=== PATIENT | female | born 1980 | race Caucasian/White ===

== ENCOUNTER 2017-04-05 08:53 | Emergency (ER) | payer MEDICARE, MEDICAID ==
[~2017-04-05] VITALS: Ht 154.9 cm; Wt 68.0 kg
[~2017-04-05 08:53] MED LIST: AMO875 PO; AMPH30TA9 PO; ARIP2TAB9 PO; ASPI-1 PO; AUG875 PO; AZI250 PO; BUP75 PO; BUPR-127 PO; BUPR-163 PO; BUPR1PAT8 TD; CAR200 PO; CHLO25 PO; CLO5 PO; CLO75 PO; CLON-393 PO; CYA100 PO; DIA10 PO; DIA5 PO; DIAZ-305 PO; ESZO3TAB37 PO; FENT-16 TD; FIO PO; FOL1 PO; HYD2 PO; HYDR-3070 PO; HYDR-3072 PO; HYDR-3074 PO; HYDR2TAB4 PO; HYDR2TAB41 PO; KET10 PO; LEV100 PO; LEV125 PO; LEV2I IV; LEVO137T22 PO; LOR5/325 PO; LOR7.5/325 PO; LORA10CA3 PO; MELO-150 PO; MELO7.5O4 PO; MET500 PO; MOD100 PO; MODA200T39 PO; MOMR; NAPR-1043 PO; NIC10R; OLAN10TA19 PO; ONDA4TAB PO; OXCA150T45 PO; OXCA600T30 PO; OXYC20TA99 PO; PAN40 PO; PENI-22 PO; PENI-24 PO; PER PO; PRE10 PO; PRE20 PO; PREG150C34 PO; PREG75CA61 PO; PRO25 PO; PROM-110 PO; PROM12.546 PO; PYRI50 PO; RAM8 PO; SUC1 PO; SUMA25TA26 PO; SUVO20TA; TIZ4 PO; TRAZ50 PO; VAL500 PO; ZOL5 PO; ZOLM5SPR4 NS; [UNRECOGNIZED DRUG - CODE] MC
[2017-04-05] MEDS ORDERED: ZOLM5TAB FT (09:18)
[2017-04-05] MEDS ORDERED: BUTA1CAP6 PO (09:18)
[2017-04-05] MEDS ORDERED: OXYC20TA99 PO (09:18)
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
[2017-04-05 10:38] LABS: PLATELET COUNT, AUTOMATED 339 K/uL (150-450)
--- NOTE | 2017-04-05 10:57 | RADIOLOGY IMAGING REPORT ---
FACILITY: [facility] - [place], [place] PATIENT NAME: Delia Nichols : 1980 MR: [id number] V: [id number] EXAM DATE: ORDERING PHYSICIAN: BELKIS VEE TECHNOLOGIST: Location: [facility] - [place], [place] Patient: Delia Nichols : 1980 Visit/Account:[id number] Date of Sevice: 04/05/2017 Abdomen radiograph series INDICATION: Pain COMPARISON: None available FINDINGS: Upright chest, two upright abdomen views and a supine abdomen view obtained. The cardiac silhouettes is normal in size. No pneumothorax. Clear lungs. Normal thoracic osseous s tructures. No free air. No organomegaly, abnormal calcifications or dilated bowel loops. Moderate volume colonic stool. Slight convexity right lumbar scoliosis. IMPRESSION: 1. No acute finding. 2. Moderate volume colonic stool. Report Dictated By: Rei Banks MD at 04/05/2017 10:50 AM Report E-Signed By: Rei Banks MD at 04/05/2017 10:52 AM WSN:[id number]
[2017-04-05 12:35] VITALS: BP 130/96
== END 2017-04-05 12:43 | disposition home or self-care (01) ==
LOC: ER 09:09
DX: K59.00 Constipation, unspecified (principal); G89.29 Other chronic pain; R10.84 Generalized abdominal pain
CPT/HCPCS: 74022; 81001; 82040; 82247; 82310; 82374; 82435; 82565; 82947; 83605; 84075; 84132; 84155; 84295; 84450; 84460; 84520; 85025; 85651; 86140; 99284

== ENCOUNTER 2017-05-16 16:29 | Emergency (ER) | payer MEDICARE, MEDICAID ==
[~2017-05-16 16:29] MED LIST changes: +BUTA1CAP6 PO; +ZOLM5TAB FT
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
[2017-05-16] MEDS ORDERED: methylPREDNIS SUCC 125 MG/2ML IM ONE (17:05)
[2017-05-16] MEDS ORDERED: diphenhydrAMINE 25 MG CAP PO ONE (17:05)
[2017-05-16] MEDS ORDERED: LOR5/325 PO (17:08)
[2017-05-16] MEDS ORDERED: PRED20TA6 PO (17:53)
[2017-05-16 18:00] VITALS: BP 147/105
== END 2017-05-16 18:12 | disposition home or self-care (01) ==
LOC: ER 16:47
DX: T78.40XA Allergy, unspecified, initial encounter (principal)
CPT/HCPCS: 96372; 99282; J2930; Q0163

== ENCOUNTER 2017-05-29 13:11 | Emergency (ER) | payer MEDICARE, MEDICAID ==
[~2017-05-29 13:11] MED LIST changes: -[UNRECOGNIZED DRUG - CODE] PO
[2017-05-29] MEDS ORDERED: OXYC20TA99 PO (13:22)
[2017-05-29 14:00] VITALS: BP 122/86
--- NOTE | 2017-05-29 14:03 | ER Report ---
History and Physical Time Seen By MD: 13:30 Hx. of Stated Complaint: pt reports taking 1 drop of skullcap and feeling throat swell and under eyes, tightness in chest, pain across upper back which she gets when she has allergic reactions HPI/ROS CHIEF COMPLAINT: Sore throat HISTORY OF PRESENT ILLNESS: 37-year-old female with sore throat "for years" presents with a lump in the throat sensation by EMS shortly after taking skullcap for the 2nd time first-time produced similar sensation this time she is concerned about an allergic reaction. No rash no wheezing no wrist or distress noted per EMS who provided Benadryl at her encouragement. She has had a total of 100 mg of Benadryl prior to arrival. She reports throat is still sore and that she did complete a course of antibiotics recently and does not feel like it helped which is why she took the skullcap in the 1st place. She claims fevers up to 101. This has been going on "for a long time" she is taking nothing to control her fevers. She is unsure if they're true fevers that she is not checking her temperature most of the time. No other concerns or complaints today. She reports possible exposure to the flu "and everything else". REVIEW OF SYSTEMS: Respiratory: No cough, no dyspnea. Cardiovascular: No chest pain, no palpitations. Gastrointestinal: No vomiting, no abdominal pain. Musculoskeletal: No back pain. Allergies: Coded Allergies: Penicillins (Verified Allergy, Mild, throat swelling, 05/29/17) prochlorperazine (Verified Allergy, Mild, MAKES HER FEEL UNEASY, 04/05/17) adhesive tape (Verified Adverse Reaction, Mild, 04/05/17) Uncoded Allergies: ORANGES (Allergy, Intermediate, SORES IN MOUTH, 10/18/11) SEASONAL ALLERGIES (Allergy, Mild, 10/19/07) skullcap (Allergy, Mild, 05/29/17) Home Meds Reported Medications Oxycodone Hcl (OXYCONTIN) 20 Mg Tab.er.12h, 40 MG PO BID, TAB 05/29/17 Zolmitriptan (ZOMIG) 5 Mg Tab, 5 MG FT, TAB 04/05/17 Butalb/Acetaminophen/Caffeine (FIORICET 50-300-40) 1 Each Capsule, 1-2 EACH PO Q4H, CAPSULE 04/05/17 Suvorexant (Belsomra) 20 Mg Tablet, DAILY 09/03/16 Promethazine Hcl (PROMETHAZINE HCL) 25 Mg Tablet, 25 MG PO PRN, TAB 05/14/16 Pantoprazole Sod (Protonix) 40 Mg Tabec, 40 MG PO HS 10/18/11 Clopidogrel Bisulfate (Plavix) 75 Mg Tab, 75 MG PO QDAY, 0 Refills 02/01/11 Discontinued Reported Medications Hydrocodone Bit/Acetaminophen (HYDROCODON-ACETAMINOPHEN 5-325) 1 Each Tablet, 2 EACH PO Q6H, TAB 05/16/17 Discontinued Scripts Prednisone (PREDNISONE) 20 Mg Tablet, 20 MG PO BID, #10 TAB Prov:SABRINA GUSMAN THREAD TRIMMER-BC 05/16/17 Hx Smoking: Yes (couple a day) Smoking Status: Current: Every Day Smoker Hx Substance Use Disorder: No Hx Alcohol Use: No Constitutional Vital Sign - Last 24 Hours 05/29/17 05/29/17 05/29/17 05/29/17 13:11 13:12 13:26 13:30 Temp 97.7 Pulse ??? 98 90 Resp 16 B/P (MAP) 137/93 (108) 137/93 127/91 (103) Pulse Ox 98 O2 Delivery Room Air 05/29/17 05/29/17 05/29/17 05/29/17 13:41 13:56 14:00 14:11 Pulse ??? 86 85 Resp 15 15 B/P (MAP) 122/86 (98) Pulse Ox 97 97 05/29/17 14:26 Pulse 88 Resp 19 Pulse Ox 99 Physical Exam General Appearance: The patient is alert, has no immediate need for airway protection and no current signs of toxicity. No distress Eyes: Pupils equal and round no injection. Bilateral tonsillar swelling, 3+ no exudate no erythema Respiratory: Chest is non tender, lungs are clear to auscultation. Cardiac: regular rate and rhythm no murmurs gallops or rubs Gastrointestinal: Abdomen is soft and non tender, no masses, bowel sounds normal. Musculoskeletal: Neck: Neck is supple and non tender. Extremities have full range of motion and are non tender. Skin: No rashes or lesions. Normal DIFFERENTIAL DIAGNOSIS: After history and physical exam differential diagnosis was considered for strep pharyngitis, viral pharyngitis no signs of systemic allergic reaction anaphylaxis or airway compromise. Medical Decision Making Data Points Laboratory Hematology Test 05/29/17 13:32 05/29/17 13:46 05/29/17 14:06 Group A Streptococcus Screen Negative (NEGATIVE) Whole Blood Glucose 77 mg/DL (75-110) Influenza Virus Type A (PCR) Negative (NEGATIVE) Influenza Virus Type B (PCR) Negative (NEGATIVE) Chemistry Test 05/29/17 13:32 05/29/17 13:46 05/29/17 14:06 Group A Streptococcus Screen Negative (NEGATIVE) Whole Blood Glucose 77 mg/DL (75-110) Influenza Virus Type A (PCR) Negative (NEGATIVE) Influenza Virus Type B (PCR) Negative (NEGATIVE) ED Course/Re-evaluation ED Course No signs of worsening while in the ED. Instructed to avoid skullcap in the future. ENT follow up for recurrent chronic tonsillitis discussed. Decision to Disposition Date: May 29, 2017 Decision to Disposition Time: 15:00 Depart Departure Latest Vital Signs Vital Signs Date Time Temp Pulse Resp B/P (MAP) Pulse Ox O2 Delivery O2 Flow Rate FiO2 05/29/17 14:26 88 19 99 05/29/17 14:00 122/86 (98) 05/29/17 13:12 97.7 Room Air Impression: Primary Impression: Tonsillitis, chronic Condition: Improved Disposition: HOME OR SELF-CARE New Scripts Phenol (CEPASTAT) 14.5 Mg Lozenge 1 IRAM PO 1-3XD Y for PAIN for 7 Days, #21 IRAM Prov: JAIMIE DURAN MD 05/29/17 Patient Instructions: Tonsillectomy (GEN), Tonsillitis (ED) JAIMIE DURAN MD May 29, 2017 14:03
[2017-05-29] MEDS ORDERED: DEXAMETHASONE 4 MG TAB PO ONE (14:05)
[2017-05-29] MEDS ORDERED: [UNRECOGNIZED DRUG - CODE] PO (15:03)
== END 2017-05-29 15:17 | disposition home or self-care (01) ==
LOC: ER 13:15
DX: J35.01 Chronic tonsillitis (principal)
CPT/HCPCS: 36416; 82948; 87081; 87502; 87880; 99283; J8540

== ENCOUNTER → 2017-05-29 | Outpatient (CLI) | payer MEDICARE, MEDICAID ==
[~2017-05-29] MED LIST changes: +PRED20TA6 PO; +[UNRECOGNIZED DRUG - CODE] PO
== END ==
LOC: AMB 12:52
PROVIDERS: ATTEND Nurse Practitioner
DX: R13.10 Dysphagia, unspecified (principal); T78.49XA Other allergy, initial encounter
CPT/HCPCS: A0425; A0427

== ENCOUNTER 2017-06-14 15:54 | Emergency (ER) | payer MEDICARE, MEDICAID ==
[~2017-06-14 15:54] MED LIST changes: +[UNRECOGNIZED DRUG - CODE] PO
--- NOTE | 2017-06-14 16:22 | ER Report ---
History and Physical Time Seen By MD: 16:16 Hx. of Stated Complaint: "SICK FOR YEARS" WITH FEVERS, NECK STIFFNESS, REACTING TO ALL MEDICATIONS, CHRONIC EAR INFECTIONS, PAIN IN BACK, THROAT, AND HEAD HPI/ROS CHIEF COMPLAINT: Multiple complaints HISTORY OF PRESENT ILLNESS: This is a 37-year-old female who presents to the emergency department for multiple complaints. Patient states that she has been sick for years and just wants things figured out here she has had multiple episodes of strep throat, ear infections, "all kinds of infections" and nobody can figure out what's going on. Patient states that she still feels like she has ear infections and she is concerned that she has encephalitis, meningitis, lymphoma and has had "multiple heart attacks in the past". Patient also states that she seen her primary care provider multiple times for these issues and they have not come up with anything. She's also been evaluated by an ENT from [place], she just finished another course of antibiotics. Upon my exam the patient is afebrile, heart rate is normal, pulse ox is normal she does not appear toxic, she does appear anxious with intermittent eye contact. REVIEW OF SYSTEMS: Constitutional: No fever, no chills. Eyes: No discharge. ENT: As above. Cardiovascular: No chest pain, no palpitations. Respiratory: No cough, no shortness of breath. Gastrointestinal: No abdominal pain, no vomiting. Genitourinary: No hematuria. Musculoskeletal: No back pain. Skin: No rashes. Neurological: No headache. Allergies: Coded Allergies: Penicillins (Verified Allergy, Mild, throat swelling, 05/29/17) ibuprofen (Verified Allergy, Mild, 06/14/17) prochlorperazine (Verified Allergy, Mild, MAKES HER FEEL UNEASY, 04/05/17) fexofenadine (Verified Allergy, Unknown, 06/14/17) adhesive tape (Verified Adverse Reaction, Mild, 04/05/17) Uncoded Allergies: ORANGES (Allergy, Intermediate, SORES IN MOUTH, 10/18/11) SEASONAL ALLERGIES (Allergy, Mild, 10/19/07) skullcap (Allergy, Mild, 05/29/17) Home Meds Reported Medications Oxycodone Hcl (OXYCONTIN) 20 Mg Tab.er.12h, 40 MG PO BID, TAB 05/29/17 Zolmitriptan (ZOMIG) 5 Mg Tab, 5 MG FT, TAB 04/05/17 Butalb/Acetaminophen/Caffeine (FIORICET 50-300-40) 1 Each Capsule, 1-2 EACH PO Q4H, CAPSULE 04/05/17 Suvorexant (Belsomra) 20 Mg Tablet, DAILY 09/03/16 Promethazine Hcl (PROMETHAZINE HCL) 25 Mg Tablet, 25 MG PO PRN, TAB 05/14/16 Pantoprazole Sod (Protonix) 40 Mg Tabec, 40 MG PO HS 10/18/11 Discontinued Reported Medications Clopidogrel Bisulfate (Plavix) 75 Mg Tab, 75 MG PO QDAY, 0 Refills 02/01/11 Discontinued Scripts Phenol (CEPASTAT) 14.5 Mg Lozenge, 1 IRAM PO 1-3XD Y for PAIN for 7 Days, #21 IRAM Prov:JAIMIE DURAN MD 05/29/17 Past Medical/Surgical History Patient has a past medical and surgical history of "CVA" seizures, migraines, "it feels in the lower legs and ankles", heart attack" but was too sick to come to the emergency department for evaluation" pulmonary embolus, hypertension, DVT , pneumonia, 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 Reviewed Nurses Notes: Yes Hx Smoking: Yes (couple a day) Smoking Status: Current: Every Day Smoker Hx Substance Use Disorder: No Hx Alcohol Use: No Constitutional Vital Sign - Last 24 Hours 06/14/17 06/14/17 06/14/17 06/14/17 15:54 16:13 16:14 16:24 Temp 97.8 Pulse ??? 95 77 Resp 16 B/P (MAP) 144/94 (111) 144/94 Pulse Ox 99 98 O2 Delivery Room Air 06/14/17 06/14/17 06/14/17 06/14/17 16:39 16:54 17:00 17:09 Pulse 83 79 82 B/P (MAP) 123/101 (108) Pulse Ox 99 97 95 06/14/17 06/14/17 06/14/17 17:24 17:31 17:39 Pulse 81 ??? B/P (MAP) 132/94 (107) Pulse Ox 97 94 Physical Exam General Appearance: The patient is alert, has no immediate need for airway protection and no signs of toxicity. Eyes: Pupils equal and round no pallor or injection. ENT, Mouth: Mucous membranes are moist. 2+ tonsillar hypertrophy, no erythema to the posterior oropharynx or the soft palate, no exudate. Respiratory: There are no retractions, lungs are clear to auscultation. Cardiovascular: Regular rate and rhythm. Gastrointestinal: Abdomen is soft and non tender, no masses, bowel sounds normal. Neurological: Alert and oriented 4. Moving all extremities. Following all commands. No focal neuro deficits. Skin: Warm and dry, no rashes. Musculoskeletal: Neck is supple non tender. Extremities are nontender, nonswollen and have full range of motion. DIFFERENTIAL DIAGNOSIS: After history and physical exam differential diagnosis was considered for recurrent strep throat, viral syndrome, malingering, obsessive-compulsive, Cesar's angina and recurrent otitis media. Medical Decision Making Data Points Result Diagram: 06/14/17 1659 Laboratory Hematology Test 06/14/17 16:59 Red Blood Count 5.01 M/uL (4.17-5.56) Mean Corpuscular Volume 85.8 fL (80.0-96.0) Mean Corpuscular Hemoglobin 30.2 pg (26.0-33.0) Mean Corpuscular Hemoglobin Concent 35.2 g/dL (32.0-36.0) Red Cell Distribution Width 12.2 % (11.5-14.5) Mean Platelet Volume 7.3 fL (7.2-11.1) Neutrophils (%) (Auto) 78.8 % (39.4-72.5) Lymphocytes (%) (Auto) 14.6 % (17.6-49.6) Monocytes (%) (Auto) 4.9 % (4.1-12.4) Eosinophils (%) (Auto) 0.3 % (0.4-6.7) Basophils (%) (Auto) 1.4 % (0.3-1.4) Nucleated RBC Relative Count (auto) 0.0 /100WBC Neutrophils # (Auto) 4.6 K/uL (2.0-7.4) Lymphocytes # (Auto) 0.9 K/uL (1.3-3.6) Monocytes # (Auto) 0.3 K/uL (0.3-1.0) Eosinophils # (Auto) 0.0 K/uL (0.0-0.5) Basophils # (Auto) 0.1 K/uL (0.0-0.1) Nucleated RBC Absolute Count (auto) 0.00 K/uL Monoscreen Negative (NEGATIVE) Chemistry Test 06/14/17 16:59 White Blood Count 5.8 k/uL (4.5-11.0) Red Blood Count 5.01 M/uL (4.17-5.56) Hemoglobin 15.1 g/dL (12.0-16.0) Hematocrit 43.0 % (34.0-47.0) Mean Corpuscular Volume 85.8 fL (80.0-96.0) Mean Corpuscular Hemoglobin 30.2 pg (26.0-33.0) Mean Corpuscular Hemoglobin Concent 35.2 g/dL (32.0-36.0) Red Cell Distribution Width 12.2 % (11.5-14.5) Platelet Count 313 K/uL (150-450) Mean Platelet Volume 7.3 fL (7.2-11.1) Neutrophils (%) (Auto) 78.8 % (39.4-72.5) Lymphocytes (%) (Auto) 14.6 % (17.6-49.6) Monocytes (%) (Auto) 4.9 % (4.1-12.4) Eosinophils (%) (Auto) 0.3 % (0.4-6.7) Basophils (%) (Auto) 1.4 % (0.3-1.4) Nucleated RBC Relative Count (auto) 0.0 /100WBC Neutrophils # (Auto) 4.6 K/uL (2.0-7.4) Lymphocytes # (Auto) 0.9 K/uL (1.3-3.6) Monocytes # (Auto) 0.3 K/uL (0.3-1.0) Eosinophils # (Auto) 0.0 K/uL (0.0-0.5) Basophils # (Auto) 0.1 K/uL (0.0-0.1) Nucleated RBC Absolute Count (auto) 0.00 K/uL Monoscreen Negative (NEGATIVE) ED Course/Re-evaluation ED Course The patient was admitted to a room. A history of disc were obtained. Differential diagnoses were considered. The patient's is very concerned that she has some underlying disease process that her primary care provider has not been able to diagnose over the last 3 years. I did explain to her that Likely That I Will Be Able to determine why she's been sick for the last 3 years we also discussed that it might be advisable for her to follow up with Dr. Archuleta the tearoom host [place] with [facility] [place] as she states she's had multiple episodes of strep throat and ear infections over the last several years and has been on a multitude of antibiotics. She was also concerned that she had meningitis, encephalitis and lymphoma. After my physical exam patient does have some enlarged tonsils however there is no erythema or exudate noted. The patient did not have a muffled voice no drooling, no difficulty breathing. I did do a CBC and a Monospot test both of which were unremarkable. I did try to reassure the patient that it's unlikely that she does not have meningitis or encephalitis at this time as she is not symptomatic , her vital signs are stable, afebrile. I did review these results with the patient. I also gave her a sheet with the local providers and encouraged her to follow up with Dr. Archuleta for a 2nd opinion from an tearoom host. Patient expressed understanding and was agreeable to this plan of care and was discharged home. Decision to Disposition Date: Jun 14, 2017 Decision to Disposition Time: 17:49 Depart Departure Latest Vital Signs Vital Signs Date Time Temp Pulse Resp B/P (MAP) Pulse Ox O2 Delivery O2 Flow Rate FiO2 06/14/17 17:39 ??? 94 06/14/17 17:31 132/94 (107) 06/14/17 16:14 97.8 16 Room Air Impression: Primary Impression: Sore throat, chronic Condition: Improved Disposition: HOME OR SELF-CARE Referrals: JUSTYN ARCHULETA JR, MD Patient Instructions: Sore Throat in Children (ED) Additional Instructions: Continue to drink plenty of fluids. Get plenty of rest, try to establish are regular bedtime routine to help with sleep. Follow up with Dr. Archuleta, ENT for further evaluation of your throat. Follow up with your PCP for any other needs. Return to the ED for any other concerns or worsening symptoms. SABRINA GUSMAN ACCESS SPECIALIST- Jun 14, 2017 16:22
[2017-06-14 17:06] LABS: PLATELET COUNT, AUTOMATED 313 K/uL (150-450)
[2017-06-14 17:31] VITALS: BP 132/94
== END 2017-06-14 18:13 | disposition home or self-care (01) ==
LOC: ER 16:13
DX: J31.2 Chronic pharyngitis (principal)
CPT/HCPCS: 36415; 85025; 86308; 99282

== ENCOUNTER → 2018-01-06 | Outpatient (CLI) | payer MEDICARE, MEDICAID | LOC: LAB 15:01 | PROVIDERS: ATTEND Otolaryngology | DX: J30.9 Allergic rhinitis, unspecified (principal) | CPT/HCPCS: 36415; 86003 ==

== ENCOUNTER → 2018-03-06 | Outpatient (CLI) | payer MEDICARE, MEDICAID ==
[~2018-03-06] MED LIST changes: +BENZ1LOZ12 PO; +CETI10CA8 PO; +DOXY-228 PO; +OXYC-373 PO; +PSEU120T9 PO; +TIZA4CAP3 PO
--- NOTE | 2018-03-07 16:24 | RADIOLOGY IMAGING REPORT ---
[place] [facility] [place] NAME: CARMELLA FLEMING : [id number] MR: [id number] V: [id number] EXAM DATE: ORDERING PHYSICIAN: PRIYA MILLER TECHNOLOGIST: Татьяна Anderson RT(R)(CT) PROCEDURE:US BILATERAL BREAST COMPARISON:Prior bilateral breast Ultrasound 04/20/11. INDICATIONS:Palpable lumps lateral portion of the Left breast & upper outer quadrant of the Right breast. FINDINGS: The entire Right breast was imaged. In the 10 o'clock position of the Right breast 6cm from the nipple there is a 6 x 2mm cyst. In the 10 o'clock position of the Right breast 4cm from the nipple there is a 7 x 3mm cyst. In the 11 o'clock position of the Right breast 6cm from the nipple is a small cluster or tiny cysts. In the 11 o'clock position of the Right breast 5cm from the nipple there is a 4mm cyst. In the 11 o'clock position of the Right breast 4cm from the nipple there is a 7.5mm cyst. In the 11 o'clock position of the Right breast 1cm from the nipple there is a 4mm cyst. In the Left breast 1 o'clock position 5cm from the nipple there is a small cluster of cysts collectable measuring 5mm. In the 1 o'clock position Left breast 1cm from the nipple there is a 1.3cm cyst. In the 10 o'clock position of the Left breast 3cm from the nipple there is a small hypoechoic nodule which was not measured may represent a small debris filled cyst. DIAGNOSTIC CATEGORY 2--BENIGN FINDING. RECOMMENDATIONS: CLINICAL EVALUATION. IMPRESSION: BIRADS 2: Benign finding. There are multiple cysts identified in both breasts as detailed above. These likely account for patient's palpable findings although continued clinical follow-up recommended. Dictated by: Shaina Cordova M.D. on 03/06/2018 at 17:18 Transcribed by: PRASAD on 03/07/2018 at 8:52 Approved by: Shaina Cordova M.D. on 03/07/2018 at 16:23 [facility]
--- NOTE | 2018-03-07 16:24 | RADIOLOGY IMAGING REPORT ---
FACILITY: [facility] [place] PATIENT NAME: CARMELLA FLEMING : [id number] MR: [id number] V: [id number] EXAM DATE: ORDERING PHYSICIAN: PRIYA MILLER TECHNOLOGIST: Shayy Farrell PROCEDURE:BILATERAL DIAGNOSTIC DIGITAL MAMMOGRAM WITH CAD ASSISTED INTERPRETATION & 3D TOMOSYNTHESIS COMPARISON:Prior mammograms 03/15/14, 04/20/11. INDICATIONS:Palpable lump upper outer quadrant of the Right breast & palpable lumps lateral aspect Left breast. FINDINGS: The breasts are extremely dense which lowers the sensitivity of mammography. The parenchymal pattern has remained stable allowing for difference in mammographic technique & patient positioning. There is no demonstration of malignant appearing mass, malignant appearing calcifications or other secondary sign of malignancy in either breast. Today's bilateral breast Ultrasound demonstrated multiple bilateral breast cysts. DIAGNOSTIC CATEGORY 2--BENIGN FINDING. RECOMMENDATIONS: CLINICAL EVALUATION. IMPRESSION: BIRADS 2: Benign finding. Today's bilateral breast Ultrasound demonstrated multiple bilateral breast cysts which likely accounts for patient's palpable findings although continued clinical follow-up recommended. Dictated by: Shaina Cordova M.D. on 03/06/2018 at 17:20 Transcribed by: PRASAD on 03/07/2018 at 8:38 Approved by: Shaina Cordova M.D. on 03/07/2018 at 16:23 [facility]
== END ==
LOC: MAMO 05:00
PROVIDERS: ATTEND Family Medicine
DX: N60.01 Solitary cyst of right breast (principal); N60.02 Solitary cyst of left breast
CPT/HCPCS: 77062; 77066

== ENCOUNTER → 2018-03-31 | Outpatient (REF) | payer MEDICARE, MEDICAID ==
[~2018-03-31] MED LIST changes: +GUAI600T57 PO; +PRE200PT PO; -ZOLM5TAB FT; +ZOLM5TAB PO
[2018-03-31 17:10] LABS: PLATELET COUNT, AUTOMATED 274 K/uL (150-450)
== END ==
LOC: ZZSENDIN 16:46
PROVIDERS: ATTEND Family Medicine
DX: Z01.812 Encounter for preprocedural laboratory examination (principal)
CPT/HCPCS: 81001; 82040; 82247; 82310; 82374; 82435; 82565; 82947; 84075; 84132; 84155; 84295; 84443; 84450; 84460; 84520; 85025

== ENCOUNTER 2018-04-03 00:57 | Day surgery (SDC) | payer MEDICARE, MEDICAID ==
[~2018-04-03] VITALS: Ht 154.9 cm; Wt 64.9 kg
[2018-04-03] MEDS ORDERED: METOCLOPRAMIDE 10 MG/2 ML SDV ONE (06:37)
[2018-04-03] MEDS ORDERED: PROPOFOL EMUL(*) 10MG/ML 20 ML 20 ML ONE (06:37)
[2018-04-03] MEDS ORDERED: LIDOCAINE MPF 1% 5 ML VIAL ONE (06:37)
[2018-04-03] MEDS ORDERED: DEXAMETHASONE SOD PHOS 10MG/ML ONE (06:37)
[2018-04-03] MEDS ORDERED: ONDANSETRON 4 MG/2 ML VIAL ONE (06:37)
[2018-04-03] MEDS ORDERED: fentaNYL CITR 100 MCG/2 ML AMP ONE ×2 (06:37→12:04)
[2018-04-03] MEDS ORDERED: CLINDAMYCIN(*) 600 MG/NS 50 ML 50 ML IVPB ONE (09:40)
[2018-04-03 09:52] VITALS: BP 105/80
[2018-04-03 09:52] LABS: PLATELET COUNT, AUTOMATED 289 K/uL (150-450)
[2018-04-03] MEDS ORDERED: FAMOTIDINE(*) 20MG/50ML PREMIX 50 ML IVPB ONE (09:58)
[2018-04-03] MEDS ORDERED: MIDAZOLAM 2 MG/2 ML VIAL IVP PRN (10:10)
[2018-04-03] MEDS ORDERED: FAMOTIDINE 20 MG TAB PO ONE (10:10)
[2018-04-03] MEDS ORDERED: LIDOCAINE/SOD BICARB 8.4% SYR ID ONE (10:10)
[2018-04-03] MEDS ORDERED: NORMOSOL R SOLN(*) 1000 ML BAG 1,000 ML IV PRN (10:10)
[2018-04-03] MEDS ORDERED: LIDO15SO2 PO (12:16)
[2018-04-03] MEDS ORDERED: AZIT-17 PO (12:18)
[2018-04-03] MEDS ORDERED: OXYC-865 PO (12:19)
--- NOTE | 2018-04-03 12:40 | OPERATIVE REPORT 1 ---
EVENT DATE: April 03, 2018 SURGEON: Kaushal Archuleta Jr., MD ANESTHESIOLOGIST: Diogo Negro MD ANESTHESIA: LMA. TRANSIT POLICE OFFICER: [*] PROCEDURE PERFORMED Tonsillectomy PREOPERATIVE DIAGNOSIS Recurrent acute tonsillitis. POSTOPERATIVE DIAGNOSIS Recurrent acute tonsillitis. INDICATIONS Please refer to the preoperative note. DESCRIPTION OF PROCEDURE The patient was positively identified in the preoperative area. She was there alone. Risks and benefits were explained including, but not limited to, bleeding, infection and those associated with anesthesia including a postoperative thrombotic event. The patient acknowledged understanding of these risks. She was then brought back to the operating room, laid supine on the operating table and anesthesia was administered. Once asleep, the patient was positioned, prepped and draped in the usual sterile fashion. A McIvor Mouth Gag was placed in the patient's oral cavity. Red rubber catheter was placed through the right nostril and utilized to suspend the soft palate. The patient was noted to have 3+ tonsils bilaterally. The right tonsil was grasped with curved Allis forceps and carefully dissected from the lateral pharyngeal wall with suction Bovie electrocautery. In a similar fashion, the contralateral tonsil was removed. Hemostasis was further obtained with suction Bovie electrocautery. The patient was then returned to anesthesia for emergence. ESTIMATED BLOOD LOSS 10 cc. COMPLICATIONS No complications. MTDD
[2018-04-03 13:05] VITALS: BP 118/81
[2018-04-03 13:21] VITALS: BP 110/81
[2018-04-03 13:25] VITALS: BP 113/84
[2018-04-04] MEDS ORDERED: ONDA4TAB9 PO (16:04)
== END 2018-04-03 13:05 | disposition home or self-care (01) ==
LOC: OR 00:57
PROVIDERS: ATTEND Otolaryngology
DX: J03.91 Acute recurrent tonsillitis, unspecified (principal)
CPT/HCPCS: 36415; 42826; 81025; 85025; 88304; A9270; J1100; J2001; J2405; J2704; J2765; J3010; J3490

== ENCOUNTER 2018-04-06 23:12 | Observation (INO) | payer MEDICARE, MEDICAID ==
[~2018-04-06 23:12] MED LIST changes: +AZIT-17 PO; +LIDO15SO2 PO; +ONDA4TAB9 PO; +OXYC-865 PO
--- NOTE | 2018-04-06 23:17 | ER Report ---
History and Physical Time Seen By MD: 23:17 HPI/ROS CHIEF COMPLAINT: Postoperative tonsillectomy bleeding HISTORY OF PRESENT ILLNESS: 38-year-old female presents ambulatory to the ER complaining of spitting up blood. She is 4 days out from a tonsillectomy. She states she has a bleeding disorder. Patient states she was washing her face when she felt a clot in her throat. She went to gargle and profuse blood came up. She's been spitting up clots in route to the hospital with her friend. REVIEW OF SYSTEMS: Respiratory: No cough, no dyspnea. Cardiovascular: No chest pain, no palpitations. Gastrointestinal: No vomiting, no abdominal pain. Musculoskeletal: No back pain. Allergies: Coded Allergies: Penicillins (Verified Allergy, Mild, throat swelling, 03/17/18) ibuprofen (Verified Allergy, Mild, 03/17/18) prochlorperazine (Verified Allergy, Mild, MAKES HER FEEL UNEASY, 03/17/18) fexofenadine (Verified Allergy, Unknown, 03/17/18) adhesive tape (Verified Adverse Reaction, Mild, 03/17/18) Uncoded Allergies: ORANGES (Allergy, Intermediate, SORES IN MOUTH, 10/18/11) SEASONAL ALLERGIES (Allergy, Mild, 10/19/07) skullcap (Allergy, Mild, 05/29/17) Home Meds Active Scripts Ondansetron 4 Mg Odt (ONDANSETRON 4 MG ODT) 4 Mg Tab.rapdis, 4 MG PO Q6H PRN for NAUSEA/VOMITING for 5 Days, #15 TAB Prov:JUSTYN ARTEAGA JR, MD 04/04/18 Benzocaine/Menthol (CEPACOL SORE THROAT LOZENGE) 1 Each Lozenge, 1 EACH PO Q2H PRN for SORE THROAT for 30 Days, #30 LOZENGE 1 Refill Prov:JUSTYN ARTEAGA JR, MD 02/28/18 Reported Medications Oxycodone Hcl/Acetaminophen (PERCOCET 5-325 MG TABLET) 1 Each Tablet, 1-2 EACH PO Q6H PRN for PAIN, #30 TAB 04/03/18 Azithromycin (Z-PACK) 250 Mg Tablet, 0 PO QDAY, #6 DOSE-PACK 04/03/18 Lidocaine HCl VISCOUS 2% (Lidocaine Viscous) 2 % Solution, 15 ML PO Q2H PRN for PAIN, #500 ML SWISH AND SPIT EVERY 2 HOURS NEED FOR PAIN RELIEF. DO NOT SWALLOW. 04/03/18 Pregabalin (LYRICA) 200 Mg Cap, 200 MG PO TID, CAP 03/17/18 Guaifenesin (MUCINEX) 600 Mg Tablet.er, 600 MG PO 03/17/18 Promethazine Hcl (PROMETHAZINE HCL) 25 Mg Tablet, 25 MG PO Q8H, TAB 03/17/18 Cetirizine Hcl (ZYRTEC) 10 Mg Capsule, 20 MG PO QDAY, CAPSULE 01/11/18 Tizanidine Hcl (TIZANIDINE HCL) 4 Mg Capsule, 4 MG PO TID, CAPSULE 01/11/18 Zolmitriptan (ZOMIG) 5 Mg Tab, 5 MG PO, TAB 04/05/17 Butalb/Acetaminophen/Caffeine (FIORICET 50-300-40) 1 Each Capsule, 1-2 EACH PO Q4H, CAPSULE 04/05/17 Suvorexant (Belsomra) 20 Mg Tablet, DAILY 09/03/16 Discontinued Reported Medications Oxycodone Hcl/Acetaminophen (OXYCODONE-ACETAMINOPHEN 5-325) 1 Each Tablet, 1 EACH PO, TAB 01/11/18 Oxycodone Hcl (OXYCONTIN) 20 Mg Tab.er.12h, 40 MG PO BID, TAB 05/29/17 Past Medical/Surgical History DIAGNOSES 1. Hypercoagulable state. 2. 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 3. Positive antiphospholipid antibody. 4. History of hypertriglyceridemia. 5. Worsening dementia symptoms. 6. Depression, on treatment. 7. Heart attack at age [age]. Two strokes at age [age]. Pulmonary embolism at age of [age]. 8. Hypertriglyceridemia. PAST SURGICAL HISTORY 1. Removal of scar tissue after . 2. Right thumb radial surgery. 3. Tonsillectomy 4 days ago Reviewed Nurses Notes: Yes Old Medical Records Reviewed: Yes Hx Smoking: Yes (couple a day) Smoking Status: Current: Some Days Smoker Hx Substance Use Disorder: No Hx Alcohol Use: No Constitutional Vital Sign - Last 24 Hours 04/06/18 04/06/18 04/06/18 04/06/18 23:17 23:18 23:20 23:22 Pulse 94 93 103 105 Resp 17 B/P (MAP) 126/95 Pulse Ox 98 91 96 86 O2 Delivery Room Air 04/06/18 04/06/18 04/06/18 04/06/18 23:24 23:26 23:28 23:30 Pulse 101 96 98 98 B/P (MAP) 116/101 (106) Pulse Ox 97 97 94 96 04/06/18 04/06/18 04/06/18 04/06/18 23:32 23:34 23:36 23:38 Pulse 100 97 103 104 Pulse Ox 97 97 96 100 04/06/18 04/06/18 04/06/18 04/06/18 23:40 23:42 23:44 23:48 Pulse 98 101 ??? 109 Pulse Ox 95 93 92 94 04/06/18 04/06/18 04/06/18 04/06/18 23:50 23:52 23:54 23:56 Pulse 100 103 104 101 Pulse Ox 95 96 96 96 04/06/18 04/07/18 04/07/18 04/07/18 23:58 00:00 00:04 00:06 Pulse 111 111 109 116 B/P (MAP) 132/90 (104) Pulse Ox 95 96 97 98 04/07/18 04/07/18 04/07/18 04/07/18 00:08 00:10 00:10 00:12 Pulse 113 ? Pulse Ox 92 97 92 O2 Flow Rate 4.0 04/07/18 04/07/18 04/07/18 04/07/18 00:14 00:20 00:22 00:24 Pulse 136 89 69 Resp 32 B/P (MAP) 53/38 (43) 50/38 (42) Pulse Ox 97 100 04/07/18 04/07/18 04/07/18 04/07/18 00:25 00:26 00:28 00:29 Pulse 61 ??? B/P (MAP) 82/29 (46) 101/64 (76) Pulse Ox 97 87 04/07/18 04/07/18 04/07/18 04/07/18 00:30 00:32 00:38 00:40 Pulse 86 79 81 79 Resp 8 10 Pulse Ox 85 100 99 04/07/18 04/07/18 04/07/18 04/07/18 00:43 00:44 00:45 00:46 Pulse 80 80 Resp 10 B/P (MAP) 108/76 (87) 109/69 (82) Pulse Ox 97 04/07/18 04/07/18 04/07/18 04/07/18 00:48 00:50 00:52 00:54 Pulse 77 82 78 ??? Resp 8 13 11 8 B/P (MAP) 106/79 (88) Pulse Ox 97 96 97 96 04/07/18 04/07/18 00:55 00:56 Pulse 82 Resp 13 B/P (MAP) 109/74 (86) Pulse Ox 94 Physical Exam General Appearance: The patient is alert, has no immediate need for airway pr otection and no current signs of toxicity. Slightly pale appearing, skin warm and dry, stable vital signs, pulse ox normal HEENT: Pupils equal and round no injection. TMs normal, ale bleeding from left tonsillar fossa Respiratory: Chest is non tender, lungs are clear to auscultation. Cardiac: regular rate and rhythm Gastrointestinal: Abdomen is soft and non tender, no masses, bowel sounds norm al. Musculoskeletal: Neck: Neck is supple and non tender. Extremities have full range of motion and are non tender. Skin: No rashes or lesions. DIFFERENTIAL DIAGNOSIS: After history and physical exam differential diagnosis was considered for postoperative bleeding, coagulopathy, Medical Decision Making Data Points Result Diagram: 04/07/18 0042 Laboratory Hematology Test 04/07/18 00:42 Red Blood Count 2.40 M/uL (4.17-5.56) Mean Corpuscular Volume 88.5 fL (80.0-96.0) Mean Corpuscular Hemoglobin 29.7 pg (26.0-33.0) Mean Corpuscular Hemoglobin Concent 33.5 g/dL (32.0-36.0) Red Cell Distribution Width 12.6 % (11.5-14.5) Mean Platelet Volume 8.4 fL (7.2-11.1) Neutrophils (%) (Auto) 73.1 % (39.4-72.5) Lymphocytes (%) (Auto) 18.4 % (17.6-49.6) Monocytes (%) (Auto) 7.8 % (4.1-12.4) Eosinophils (%) (Auto) 0.4 % (0.4-6.7) Basophils (%) (Auto) 0.3 % (0.3-1.4) Nucleated RBC Relative Count (auto) 0.1 /100WBC Neutrophils # (Auto) 3.8 K/uL (2.0-7.4) Lymphocytes # (Auto) 1.0 K/uL (1.3-3.6) Monocytes # (Auto) 0.4 K/uL (0.3-1.0) Eosinophils # (Auto) 0.0 K/uL (0.0-0.5) Basophils # (Auto) 0.0 K/uL (0.0-0.1) Nucleated RBC Absolute Count (auto) 0.00 K/uL Chemistry Test 04/07/18 00:42 White Blood Count 5.2 k/uL (4.5-11.0) Red Blood Count 2.40 M/uL (4.17-5.56) Hemoglobin 7.2 g/dL (12.0-16.0) Hematocrit 21.3 % (34.0-47.0) Mean Corpuscular Volume 88.5 fL (80.0-96.0) Mean Corpuscular Hemoglobin 29.7 pg (26.0-33.0) Mean Corpuscular Hemoglobin Concent 33.5 g/dL (32.0-36.0) Red Cell Distribution Width 12.6 % (11.5-14.5) Platelet Count 132 K/uL (150-450) Mean Platelet Volume 8.4 fL (7.2-11.1) Neutrophils (%) (Auto) 73.1 % (39.4-72.5) Lymphocytes (%) (Auto) 18.4 % (17.6-49.6) Monocytes (%) (Auto) 7.8 % (4.1-12.4) Eosinophils (%) (Auto) 0.4 % (0.4-6.7) Basophils (%) (Auto) 0.3 % (0.3-1.4) Nucleated RBC Relative Count (auto) 0.1 /100WBC Neutrophils # (Auto) 3.8 K/uL (2.0-7.4) Lymphocytes # (Auto) 1.0 K/uL (1.3-3.6) Monocytes # (Auto) 0.4 K/uL (0.3-1.0) Eosinophils # (Auto) 0.0 K/uL (0.0-0.5) Basophils # (Auto) 0.0 K/uL (0.0-0.1) Nucleated RBC Absolute Count (auto) 0.00 K/uL ED Course/Re-evaluation Clinical Indication for ER IV: Hydration, IV Access ED Course Patient was admitted to an examination room. H&P was done. The differential diagnoses was considered. A peripheral IV was established. 1 L normal saline bolus was ordered. A CBC was ordered. Patient was treated with cold popsicles to the back of her throat. After a brief period. She continued to have profuse bleeding. A call was placed to Dr. Justyn Arteaga ENT on-call. Patient's bleeding worsened approximately 25 minutes into her emergency department stay. Dr. Arteaga recommended 1 g of TXA IV infused over 10 minutes. A 2nd peripheral IV was established. Type and cross for 4 units of blood was ordered. She began to have continued profuse bleeding. Her blood pressure dropped to 53/30. She was placed on supplemental O2 and a 3rd IV was established. 2 L of normal saline was administered. Repeat H&H was drawn and returned at 7 and 21. She was crossmatched for 4 units. The OR crew was called in as well as Dr. Arteaga to take the patient to the OR for hemostasis. Decision to Disposition Date: Apr 07, 2018 Decision to Disposition Time: 00:48 Critical Care Time I spent a total of 60 of critical care time in obtaining history, performing a physical exam, bedside monitoring of interventions, collecting and interpreting tests and discussion with consultants but not including time spent performing procedures. Depart Departure Latest Vital Signs Vital Signs Date Time Temp Pulse Resp B/P (MAP) Pulse Ox O2 Delivery O2 Flow Rate FiO2 04/07/18 00:56 82 13 94 04/07/18 00:55 109/74 (86) 04/07/18 00:10 4.0 04/06/18 23:17 Room Air Impression: Primary Impression: Postoperative bleeding from mouth Additional Impressions: Status post tonsillectomy Anemia Hypercoagulable state Condition: Improved Disposition: ADMIT FROM ER TO OR Problem Qualifiers Additional Impressions: Anemia Anemia type: unspecified type Qualified Codes: D64.9 - Anemia, unspecified EDILBERTO ESTES DO Apr 06, 2018 23:17
[2018-04-06] MEDS ORDERED: ONDANSETRON 4 MG/2 ML VIAL IVP ONE (23:20)
[2018-04-07] VITALS (16 sets, daily range): BP systolic 98–113; BP diastolic 67–82
[2018-04-07] MEDS ORDERED: TRANEXAMIC AC 1000 MG/10ML SDV ONE
[2018-04-07] MEDS ORDERED: NS(*) 0.9% 250 ML BAG 250 ML ONE (00:05)
[2018-04-07 00:19] LABS: PLATELET COUNT, AUTOMATED 255 K/uL (150-450)
[2018-04-07] MEDS ORDERED: PROMETHAZINE 25 MG/ML 1 ML AMP ONE (00:20)
[2018-04-07] MEDS ORDERED: FAMOTIDINE(*) 20MG/50ML PREMIX 50 ML IVPB ONE (01:04)
[2018-04-07] MEDS: NORMOSOL R SOLN(*) 1000 ML BAG 1,000 ML IV PRN ×2 (01:10→02:50)
[2018-04-07 01:25] LABS: PLATELET COUNT, AUTOMATED 132 K/uL (150-450)
[2018-04-07] MEDS ORDERED: LR(*) 1000 ML BAG 1,000 ML IV PRN (01:28)
[2018-04-07] MEDS ORDERED: ONDANSETRON 4 MG ODT TABDP SL PRN (01:30)
--- NOTE | 2018-04-07 01:31 | Post Operative Note ---
Operative Note - ENT Operative Day Date: Apr 07, 2018 Physicians Surgeon: Geremias Anesthesia: GETA Diagnosis Pre-Op Diagnosis: post tonsillectomy hemorrhage Post-Op Diagnosis: same Procedure Procedure(s): cauterization post tonsillectomy hemorrhage Complications: none Fluids Estimated Blood Loss: 10 ml JUSTYN ARTEAGA JR, MD Apr 07, 2018 01:31
[2018-04-07] MEDS ORDERED: SUCCINYLCHOL CHL 100MG/5ML SYR IVP ONE (01:35)
[2018-04-07] MEDS ORDERED: PROPOFOL EMUL 10MG/ML 20 ML VL ONE (01:35)
[2018-04-07] MEDS ORDERED: DEXAMETHASONE SOD PHOS 10MG/ML ONE (01:35)
[2018-04-07] MEDS ORDERED: ROCURONIUM BROM 10 MG/ML 10 ML ONE (01:35)
[2018-04-07] MEDS ORDERED: NS(*) 0.9% 1000 ML BAG 1,000 ML IV ONE ×3 (01:45)
[2018-04-07] MEDS ORDERED: fentaNYL CITR 100 MCG/2 ML AMP ONE ×2 (02:09→02:36)
--- NOTE | 2018-04-07 02:17 | CONSULTATION ---
EVENT DATE: April 07, 2018 REQUESTING PHYSICIAN Kraig Aguilar DO, in the emergency department. CONSULTING PHYSICIAN Kaushal Archuleta Jr., MD REASON FOR CONSULTATION Post-tonsillectomy hemorrhage. HISTORY OF PRESENT ILLNESS This is a 38-year-old woman who underwent tonsillectomy by me four days ago. The patient noticed acute bleeding from the mouth earlier this evening. She presented to the emergency department. Per report, she coughed up approximately 1400 mL of bright red blood. She was given 1 g of TXA with some improvement of her bleeding transiently. PAST MEDICAL HISTORY Significant for seizure, stroke, hypertension, history of myocardial infarction, GERD, hypothyroidism. FAMILY HISTORY Mother with breast cancer and hypothyroidism. SOCIAL HISTORY The patient smokes tobacco. She denies alcohol use and recreational drug use. REVIEW OF SYSTEMS As above. PHYSICAL EXAMINATION GENERAL: Well nourished, well developed, in no apparent distress. VITAL SIGNS: Heart rate 100, oxygen saturation 91%. Blood pressure was 100/70. HEENT: Dried blood over the patient's face and oral cavity. No active bleeding presently. ASSESSMENT Post-tonsillectomy hemorrhage. PLAN Given the severity of the patient's post-tonsillectomy hemorrhage, I elected to take her to the operating room for identification of the source and cauterization. Risks of recurrent bleeding and those associated with anesthesia are discussed with the patient. The patient is to receive blood transfusion, which was already ordered by the emergency department and consented to by the patient. ELYSE
--- NOTE | 2018-04-07 02:31 | OPERATIVE REPORT 1 ---
EVENT DATE: April 07, 2018 SURGEON: Kaushal Archuleta Jr., MD ANESTHESIOLOGIST: Sudeep Watson MD ANESTHESIA: General endotracheal. PREOPERATIVE DIAGNOSIS Left post-tonsillectomy hemorrhage. POSTOPERATIVE DIAGNOSIS Left post-tonsillectomy hemorrhage. PROCEDURE PERFORMED Cauterization of left post-tonsillectomy hemorrhage. INDICATIONS Please refer to the preoperative note. DESCRIPTION OF PROCEDURE The patient was positively identified in the preoperative area. She was there alone. Risks again were explained, including but not limited to recurrent bleeding and those associated with anesthesia. She acknowledged understanding of those risks. She was then brought back to the operative suite and placed upon the operating table, and anesthesia was administered. Once asleep, the patient was positioned and prepped and draped in the usual sterile fashion. A McIvor mouth gag was placed in the patient's oral cavity. A red rubber catheter was placed through the right nostril and utilized to suspend the soft palate. The patient had gross clot in her left tonsillar fossa. This was removed with forceps. The oral cavity was then copiously irrigated with normal saline solution. The patient was noted to have some active bleeding from the left superior pole of the tonsillar fossa. This was cauterized with suction Bovie electrocautery. Patient was then turned to Anesthesia for emergence. Estimated blood loss during the case was less than 10 mL. No complications. MTDD
[2018-04-07] MEDS ORDERED: ONDANSETRON 4 MG/2 ML VIAL ONE (02:36)
[2018-04-07] MEDS: MORPHINE 2 MG/ML SYR IVP PRN ×2 (03:05→05:18)
[2018-04-07] MEDS ORDERED: PREGABALIN 200 MG PO SCH (09:00)
[2018-04-07] MEDS: PREGABALIN PO SCH ×2 (09:10→13:13)
--- NOTE | 2018-04-07 13:08 | Short(Outpt) Discharge Summary ---
Discharge Summary Reason for Hosp/Final Diag: (1) Post-tonsillectomy hemorrhage Status: Resolved Hospital Course & Plan: Patient underwent cauterization early this morning and received 2 units PRBCs. She is doing well. Discharge home this afternoon. Departure Discharge to: Home Discharge Instructions Home Meds Active Scripts Ondansetron 4 Mg Odt (ONDANSETRON 4 MG ODT) 4 Mg Tab.rapdis, 4 MG PO Q6H PRN for NAUSEA/VOMITING for 5 Days, #15 TAB Prov:JUSTYN ARTEAGA JR, MD 04/04/18 Benzocaine/Menthol (CEPACOL SORE THROAT LOZENGE) 1 Each Lozenge, 1 EACH PO Q2H PRN for SORE THROAT for 30 Days, #30 LOZENGE 1 Refill Prov:JUSTYN ARTEAGA JR, MD 02/28/18 Reported Medications Oxycodone Hcl/Acetaminophen (PERCOCET 5-325 MG TABLET) 1 Each Tablet, 1-2 EACH PO Q6H PRN for PAIN, #30 TAB 04/03/18 Azithromycin (Z-PACK) 250 Mg Tablet, 0 PO QDAY, #6 DOSE-PACK 04/03/18 Lidocaine HCl VISCOUS 2% (Lidocaine Viscous) 2 % Solution, 15 ML PO Q2H PRN for PAIN, #500 ML SWISH AND SPIT EVERY 2 HOURS NEED FOR PAIN RELIEF. DO NOT SWALLOW. 04/03/18 Pregabalin (LYRICA) 200 Mg Cap, 200 MG PO TID, CAP 03/17/18 Guaifenesin (MUCINEX) 600 Mg Tablet.er, 600 MG PO 03/17/18 Promethazine Hcl (PROMETHAZINE HCL) 25 Mg Tablet, 25 MG PO Q8H, TAB 03/17/18 Cetirizine Hcl (ZYRTEC) 10 Mg Capsule, 20 MG PO QDAY, CAPSULE 01/11/18 Tizanidine Hcl (TIZANIDINE HCL) 4 Mg Capsule, 4 MG PO TID, CAPSULE 01/11/18 Zolmitriptan (ZOMIG) 5 Mg Tab, 5 MG PO, TAB 04/05/17 Butalb/Acetaminophen/Caffeine (FIORICET 50-300-40) 1 Each Capsule, 1-2 EACH PO Q4H, CAPSULE 04/05/17 Suvorexant (Belsomra) 20 Mg Tablet, DAILY 09/03/16 Discontinued Reported Medications Oxycodone Hcl/Acetaminophen (OXYCODONE-ACETAMINOPHEN 5-325) 1 Each Tablet, 1 EACH PO, TAB 01/11/18 Oxycodone Hcl (OXYCONTIN) 20 Mg Tab.er.12h, 40 MG PO BID, TAB 05/29/17 Diet: Regular Activity: As Tolerated Special Instructions: Patient has scheduled follow up. JUSTYN ARTEAGA JR, MD Apr 07, 2018 13:08
== END 2018-04-07 13:05 | disposition home or self-care (01) ==
LOC: ER 23:23 → OR 04-07 01:02 → UNDOADMOB 04-07 03:10 → MED 04-07 03:10
PROVIDERS: ADMIT Otolaryngology; ATTEND Otolaryngology
DX: J95.830 Postprocedural hemorrhage of a respiratory system organ or structure following a respiratory system procedure (principal); D64.9 Anemia, unspecified; I10 Essential (primary) hypertension; K21.9 Gastro-esophageal reflux disease without esophagitis; E03.9 Hypothyroidism, unspecified; I25.2 Old myocardial infarction; F17.210 Nicotine dependence, cigarettes, uncomplicated
CPT/HCPCS: 36415; 36430; 85014; 85018; 85025; 86850; 86900; 86901; 86920; 99291; G0378; J0330; J1100; J2270; J2405; J2550; J2704; J3010; J3490; J7030; J7050; P9016

== ENCOUNTER → 2018-05-30 | Outpatient (CLI) | payer MEDICARE, MEDICAID ==
[~2018-05-30] MED LIST changes: +FLU150 PO; +LEVO-85 PO; +LEVO750T44 PO
== END ==
LOC: LAB 16:43
PROVIDERS: ATTEND Nurse Practitioner Primary Care
DX: R30.0 Dysuria (principal)
CPT/HCPCS: 81001

== ENCOUNTER → 2018-05-31 | Outpatient (CLI) | payer MEDICARE, MEDICAID ==
--- NOTE | 2018-05-31 14:55 | RADIOLOGY IMAGING REPORT ---
FACILITY: [facility] - [place] PATIENT NAME: Delia Nichols : 1980 MR: [id number] V: [id number] EXAM DATE: ORDERING PHYSICIAN: SARAH ANDRE TECHNOLOGIST: Location: [facility] - [place] Patient: Delia Nichols : 1980 Visit/Account:[id number] Date of Sevice: 05/31/2018 CT SINUS W/O CON COMPARISONS: None ADDITIONAL PERTINENT HISTORY: Recurrent sinus infections TECHNIQUE: Multiple axial images were obtained through the paranasal sinuses with coronal and sagitta l reformatted images. No IV contrast was administered. One of the following dose optimization techni ques was utilized in the performance of this exam: Automated exposure control; adjustment of the mA a nd/or kV according to the patient's size; or use of an iterative reconstruction technique. Specific details can be referenced in the facility's radiology CT exam operational policy. FINDINGS: Maxillary sinuses: Negative. Frontal sinuses: Negative. Ethmoid air cells: Negative. Sphenoid sinuses:Negative. Nasal septum: Mild nasal septal deviation to the right. Otherwise negative. Drainage pathways: Patent Paranasal variance: None Medial orbital frederick, cribriform plate, and orbital floors: Negative. Visualized bony skull base Negative. Visualized intracranial contents: Negative. Orbits and surrounding soft tissues: Negative. IMPRESSION: 1. Minimal nasal septal deviation to the right. 2. No evidence of underlying paranasal sinus disease on today's exam. Report Dictated By: Osiel Urias MD at 05/31/2018 2:47 PM Report E-Signed By: Osiel Urias MD at 05/31/2018 2:50 PM [id number]
== END ==
LOC: CT 07:08
PROVIDERS: ATTEND Nurse Practitioner Primary Care
DX: J34.2 Deviated nasal septum (principal)
CPT/HCPCS: 70486

== ENCOUNTER → 2018-06-02 | Outpatient (CLI) | payer MEDICARE, MEDICAID ==
[2018-06-02 14:36] LABS: PLATELET COUNT, AUTOMATED 269 K/uL (150-450)
== END ==
LOC: LAB 14:22
PROVIDERS: ATTEND Nurse Practitioner Primary Care
DX: J32.9 Chronic sinusitis, unspecified (principal)
CPT/HCPCS: 36415; 85025; 85651; 86140

== ENCOUNTER → 2018-10-13 | Outpatient (CLI) | payer MEDICARE, MEDICAID ==
[~2018-10-13] MED LIST changes: +AZEL137S NS; +FLUT16SP19 NS; +GADOBENATE 529MG/1ML 15ML VIAL IVP ONE
--- NOTE | 2018-10-13 14:04 | RADIOLOGY IMAGING REPORT ---
FACILITY: [facility] - [place] PATIENT NAME: Delia Nichols : 1980 MR: [id number] V: [id number] EXAM DATE: ORDERING PHYSICIAN: PERRY DELAROSA TECHNOLOGIST: Location: [facility] - [place] Patient: Delia Nichols : 1980 Visit/Account:[id number] Date of Sevice: 10/13/2018 MR BRAIN/BRAIN STEM W/ & W/O CON Comparisons: None. Additional pertinent history: History of stroke with persistent headache, new TECHNIQUE: Multiplanar, multisequence brain MRI was performed with and without gadolinium contrast. CONTRAST: 15 ml of MultiHance. FINDINGS: Sagittal midline structures and craniocervical junction: Negative. Midline shift: None. Ventricles: Negative. Brain parenchyma: Diffusion weighted imaging: Negative. Gradient sequence: Negative. T2 weighted FLAIR images: Mild patchy increased T2 signal within the subcortical white matter of brittanie th cerebral hemispheres, nonspecific but can be seen in patients with long-standing history of headac he. Extra-axial spaces: Negative. Dural venous sinuses and major arterial flow voids: Negative. Intracranial enhancement: Negative.. Mastoid air cells and paranasal sinuses: Negative. Surrounding soft tissues and orbits: Negative. Impression: 1. Mild increased T2 signal within the subcortical white matter of both cerebral hemispheres which ca n be seen in patients with long-standing history of headaches. 2. No acute intracranial pathology. Report Dictated By: Osiel Urias MD at 10/13/2018 1:54 PM Report E-Signed By: Osiel Urias MD at 10/13/2018 1:58 PM [id number]
== END ==
LOC: MRI 10:25
PROVIDERS: ATTEND Physician Assistant
DX: G44.52 New daily persistent headache (NDPH) (principal); Z86.73 Personal history of transient ischemic attack (TIA), and cerebral infarction without residual deficits; G43.709 Chronic migraine without aura, not intractable, without status migrainosus; G50.1 Atypical facial pain
CPT/HCPCS: 70553; A9577